=== PATIENT | male | born 1995 | race Caucasian/White ===

== ENCOUNTER 2016-05-10 21:25 | Emergency (ER) | payer OTHER ==
[2016-05-10 21:42] VITALS: BP 121/76
[2016-05-10] MEDS ORDERED: Ciprofloxacin 0.3% OPTH.SOL* 2.5 ML BTL ONE (21:49)
--- NOTE | 2016-05-10 21:57 | UC ---
Ear Complaint HPI - HPI Summary HPI Summary: Rapid onset R ear pain tonight around 1945. Hx of chronic sinusitis, but has not had particularly severe symptoms lately. No drainage or hx of ear surgeries. - History of Current Complaint Chief Complaint: UC Stated Complaint: EAR PAIN Time Seen by Provider: 05/10/16 21:28 Hx Obtained From: Patient Onset/Duration: Sudden Onset Severity Initially: Moderate Severity Currently: Moderate Aggravating Factors: Nothing Alleviating Factors: Nothing Associated Signs/Symptoms: Negative: Hearing Loss, Foreign Body Sensation, URI Symptoms Related History: Prior ENT Surgery - sinus surgery - Allergies/Home Medications Allergies/Adverse Reactions: Allergies Allergy/AdvReac Type Severity Reaction Status Date / Time No Known Allergies Allergy Verified 05/10/16 21:35 Home Medications: Home Medications Guaifenesin/Pseudo 600/60(NF) [Mucinex D 600/60 (NF)] 1 tab PO BID 05/10/16 [ History Confirmed 05/10/16] Ibuprofen [Ibuprofen 200 MG] 600 mg PO Q6H PRN 05/10/16 [History Confirmed 05/10] PMH/Surg Hx/FS Hx/Imm Hx Previously Healthy: Yes - Surgical History Surgical History: Yes Surgery Procedure, Year, and Place: sinus surgery, back surgery - Family History Known Family History: Negative: Blood Disorder - Social History Occupation: Student Lives: Alone Alcohol Use: Rare Substance Use Type: None Smoking Status (MU): Never Smoked Tobacco - Immunization History Most Recent Influenza Vaccination: none Review of Systems Constitutional: Negative Skin: Negative Eyes: Negative ENT: Ear Ache Respiratory: Negative Cardiovascular: Negative Gastrointestinal: Negative Genitourinary: Negative Motor: Negative Neurovascular: Negative Musculoskeletal: Negative Neurological: Negative Psychological: Negative All Other Systems Reviewed And Are Negative: Yes Physical Exam Triage Information Reviewed: Yes Appearance: Well-Appearing, No Pain Distress, Well-Nourished Vital Signs: Initial Vital Signs Temp 99.2 F 05/10/16 21:37 Pulse 73 05/10/16 21:37 Resp 16 05/10/16 21:37 BP 121/76 05/10/16 21:37 Pulse Ox 99 05/10/16 21:37 Vital Signs Reviewed: Yes Eye Exam: Normal Eyes: Positive: Conjunctiva Clear ENT: Positive: Hearing grossly normal, Pharynx normal, Nasal congestion, TMs normal, TM red - R TM slightly red, Other: - R ear canal red, narrowed about longterm down. Negative: Nasal drainage, TM bulging, TM dull Dental Exam: Normal Neck exam: Normal Neck: Positive: Supple, Nontender, No Lymphadenopathy Respiratory Exam: Normal Respiratory: Positive: Chest non-tender, Lungs clear, Normal breath sounds, No respiratory distress, No accessory muscle use Cardiovascular Exam: Normal Cardiovascular: Positive: RRR, No Murmur Musculoskeletal Exam: Normal Neurological Exam: Normal Psychological Exam: Normal Skin Exam: Normal Ear Complaint Course/Dx - Differential Dx/Diagnosis Provider Diagnoses: R ear otitis externa Discharge - Discharge Plan Condition: Stable Disposition: HOME Prescriptions: Ciproflox/Dexameth OTIC.SUSP* [Ciprodex OTIC.SUSP*] 4 drop RIGHT EAR BID #1 btl Patient Education Materials: Otitis Externa (ED) Additional Instructions: You did not have signs of a middle ear infection (otitis media) tonight -- your ear drum was the normal shape, it was translucent, and I could see the correct landmarks. However, if you develop fever or bloody drainage from the ear, please don't hesitate to return here for a recheck.
== END 2016-05-10 22:00 | disposition home or self-care (01) ==
LOC: UCEAST 21:25
DX: H60.91 Unspecified otitis externa, right ear (principal)
CPT/HCPCS: 99212; A9270-GY; G0463